=== PATIENT | female | born 1955 | race Caucasian/White ===

== ENCOUNTER 2019-07-07 07:08 | Day surgery (SDC) | payer MEDICARE, BC ==
[~2019-07-07 07:08] MED LIST: Acetaminophen TAB* 325 MG PO ONE; Buffered Lidocaine 1% SYRIN* 1 ML/SYRINGE INTRADERM ONE; Lactated Ringers 1000 ML Bag* 1,000 ML IV SCH
[2019-07-07] MEDS ORDERED: Acetaminophen TAB* 325 MG ONE ×2 (07:54→14:16)
[2019-07-07] MEDS ORDERED: ceFAZolin 2 GM PREMIX in ORs 2 GM/50 ML BAG ONE (07:55)
[2019-07-07] MEDS ORDERED: Midazolam* 1 MG/ML 2 ML VIAL (2 MG) ONE (08:07)
[2019-07-07] MEDS ORDERED: Propofol* 10 MG/ML 20 ML BTL ONE (08:08)
[2019-07-07] MEDS ORDERED: fentaNYL* 50 MCG/ML 5 ML VIAL (250 MCG VIAL) ONE (08:08)
[2019-07-07] MEDS ORDERED: PROCHLORPERAZINE INJ 5 MG/ML 2 ML VIAL IV PRN (08:31)
[2019-07-07] MEDS ORDERED: diPHENhydraMINE IV* 50 MG/ML 1 ml VIAL (BENADRYL) IV PRN (08:31)
[2019-07-07] MEDS ORDERED: Ondansetron INJ* 2 MG/ML VIAL IV PRN (08:31)
[2019-07-07] MEDS ORDERED: Naloxone* 0.4 MG/ML 1 ML VIAL IV PRN (08:31)
[2019-07-07] MEDS ORDERED: Bupivacaine 0.5%* 50 ML MDV VIAL ONE (08:44)
[2019-07-07] MEDS ORDERED: HYDROmorphone INJ1* 1 MG/ML SYRINGE ONE ×3 (09:36→12:29)
[2019-07-07] MEDS ORDERED: Ondansetron INJ* 2 MG/ML VIAL ONE ×2 (10:17→14:47)
[2019-07-07] MEDS ORDERED: Ketorolac INJ* 30 MG/ML 1 ML VIAL ONE (10:17)
[2019-07-07] MEDS: HYDROmorphone INJ1* 1 MG/ML SYRINGE IV PRN ×5 (10:34→11:00)
[2019-07-07] MEDS ORDERED: Gabapentin CAP(*) 300 MG ONE (11:08)
[2019-07-07] MEDS ORDERED: oxyCODONE TAB* 5 MG TAB ONE ×2 (11:24→11:58)
[2019-07-07] MEDS: oxyCODONE TAB* 5 MG TAB PO PRN ×2 (11:25→11:58)
[2019-07-07] MEDS ORDERED: Metoprolol Tartrate IV* 1 MG/ML 5 ML VIAL ONE (14:59)
[2019-07-07 15:17] VITALS: BP 160/78
[2019-07-07] MEDS ORDERED: PROCHLORPERAZINE INJ 5 MG/ML 2 ML VIAL ONE (15:18)
--- NOTE | 2019-07-07 22:44 | OP ---
DATE OF OPERATION: 07/07/19 - [facility] DATE OF : 51 SURGEON: Matt Washington MD. BUSINESS OPERATIONS SPECIALIST: DAVID Flores. PRE-OP DIAGNOSIS: Right posterior tibial tendon tear tendinosis. POST-OP DIAGNOSIS: Right posterior tibial tendon tear tendinosis. OPERATIVE PROCEDURES: Calcaneal osteotomy, right hind foot and flexor digitorum longus transfer to repair of the posterior tibial tendon. DESCRIPTION OF PROCEDURE: The patient was taken to the operating room with thigh tourniquet inflated. We started on the lateral hindfoot where an oblique incision was made essentially over the peroneus tendon below the malleolus. Due to soft tissue, we avoided any branches of the nerve and retracted the peroneus longus tendon dorsally. Directly through the floor of the tendon, we made a lateral-to- medial cut with a microsagittal saw. This was completed gently with an osteotome and then distracted with the laminar incinerator plant general supervisor. We were able to shift the calcaneus medially a full centimeter perhaps even 12 mm, pinning this from plantar to dorsal with a partially threaded cancellous screw. We irrigated the wound and closed it after irrigation with the 2-0 Monocryl subcu and naren for the skin and the stab wound at the heel was closed with interrupted Prolene suture. We then rolled the foot externally to allow visualization in the medial side where a 6 cm longitudinal incision was made from the medial malleolus to the medial aspect at the base of the first metatarsal. Through the sheath of the posterior tibial , we noted that there was a large nodular tear, essentially at the level of the medial malleolus. This was debrided longitudinally, but we wanted to be able to transfer the tendon proximal to this damaged area, so we extended the incision slightly proximally. We debrided the torn area of the tendon longitudinally. About a 4 to 5 cm area of the longitudinal debridement was made leaving probably two-thirds of the diameter of the tendon. Just deep to the tendon, we harvested the FDL tendon by tracing this down to the knot of Moody where it was sewn [id number] to the FHL tendon with a 2- 0 Vicryl. We transected it at this level bringing it back proximally and transferring into a plantar-to- dorsal drill hole at the medial navicular. The tendon was brought through the bone dorsally and then tied down to the periosteum using Vicryl sutures with an whipstitch of the tendon into the debrided surface of the posterior tibial tendon with interrupted 2-0 Vicryl sutures. We irrigated and closed the retinaculum with interrupted 2-0 Vicryl sutures, subcu with Monocryl, and naren for the skin. The patient tolerated the procedure well, was placed under compressive dressing with a plaster splint. [id number] #: [id number] KRISTA
== END 2019-07-07 16:07 | disposition home or self-care (01) ==
LOC: OR 07:08
PROVIDERS: ATTEND Orthopaedic Surgery
DX: M76.821 Posterior tibial tendinitis, right leg (principal); E11.9 Type 2 diabetes mellitus without complications; Z79.84 Long term (current) use of oral hypoglycemic drugs; Z79.4 Long term (current) use of insulin; E78.5 Hyperlipidemia, unspecified; M79.7 Fibromyalgia; I10 Essential (primary) hypertension; E66.9 Obesity, unspecified; Z68.33 Body mass index [BMI] 33.0-33.9, adult; E78.00 Pure hypercholesterolemia, unspecified
CPT/HCPCS: 76000; 88304; A9270-GY; C1713; J0690; J0780; J1170; J1885; J2250; J2405; J2704; J3010; J3490